=== PATIENT | female | born 1965 | race Caucasian/White ===

== ENCOUNTER 2017-08-04 11:04 | Emergency (ER) | payer OTHER ==
[~2017-08-04] VITALS: Ht 167.6 cm; Wt 55.0 kg
[2017-08-04 11:07] VITALS: BP 113/67; PULSE 107; RESP 16; TEMP 98.6; O2SAT 99
--- NOTE | 2017-08-04 11:12 | PD ---
Physical Exam Date Seen by Provider: Aug 04, 2017 Time Seen by Provider: 11:09 Data Data Last Documented VS Vital Signs Date Time Temp Pulse Resp B/P (MAP) Pulse Ox O2 Delivery O2 Flow Rate FiO2 08/04/17 11:07 98.6 107 16 113/67 (82) 99 MDM Supervised Visit with [facility]: No Narrative Course 52 YO F with complaint of "stomach bug" for 10 days. Endorses diarrhea and nausea. Denies vomiting. Seen at urgent care this week. Took an Imodium which caused pain, then took a laxative. Last treated 3 days ago. States that she has swollen ears and hives since last night. Vitals reviewed. Patient seen in triage, awaiting bed placement. Scripts No Active Prescriptions or Reported Meds Jennifer Crane Aug 04, 2017 11:12
[2017-08-04] MEDS ORDERED: PROM25TA10 PO (11:34)
[2017-08-04] MEDS ORDERED: MEDR4PAK PO (11:34)
--- NOTE | 2017-08-04 11:43 | PD ---
Physical Exam Date Seen by Provider: Aug 04, 2017 Narrative Patient presents with a pruritic rash. On exam, her ears are bright red. She has a diffuse, scattered, irregular macular rash. She is not having any respiratory difficulty. Data Data Last Documented VS Vital Signs Date Time Temp Pulse Resp B/P (MAP) Pulse Ox O2 Delivery O2 Flow Rate FiO2 08/04/17 11:07 98.6 107 16 113/67 (82) 99 MDM Supervised Visit with [facility]: Yes Narrative Course I, Dr. Hill, have reviewed the advance practice practitioner's documentation and am in agreement, met with the patient face to face, made the diagnosis, and the medical decision making was done by me. *My assessment and Findings: This patient appears to be having a mild allergic reaction. Scripts Methylprednisolone Dosepak (Medrol Dosepak) 4 Mg Dspk 4 MG PO DIRECTED, #1 DSPK 0 Refills Per Pharmacist direction Prov: Ailyn Mcfarland 08/04/17 Promethazine (Phenergan) 25 Mg Tablet 25 MG PO Q6H Y for NAUSEA OR VOMITING for 7 Days, #28 TAB 0 Refills Prov: Ailyn Mcfarland 08/04/17 Blanquita Hill MD Aug 04, 2017 11:43
--- NOTE | 2017-08-04 11:47 | PD ---
HPI Chief Complaint: Allergic/Adverse Reaction Time Seen by Provider: 11:14 Travel History International Travel<30 days: No Contact w/Intl Traveler<30days: No Traveled to known affect area: No History of Present Illness HPI 52-year-old white female here with and planing of itching and a rash. She says it started last night with bilateral ear itching and swelling. She developed hives on her arms and buttocks, then her eyebrows started becoming red and swollen. She she says she went to a walk-in clinic yesterday for a one- week history of a 'stomach bug' was given an abdominal x-ray and told to follow the BRAT diet. She thinks the the stomach bug they have contributed to her symptoms. Currently she has nausea but denies fever, chills, chest pain, shortness of breath, abdominal pain, hematochezia or melena. She denies any unusual or new foods, new medications, illicit drug use, or bites or stings. Medical history significant for hyperlipidemia and anxiety. PFSH Past Medical History Heart Rhythm Problems: No Cardiac Catheterization: Yes Cardiovascular Problems: Yes (PALPATIONS ) High Cholesterol: No Congestive Heart Failure: Yes Diabetes: No Diminished Hearing: No Immunizations Current: Yes Past Surgical History Section: Yes (X2) Coronary Artery Bypass Graft: No Social History Alcohol Use: Yes (occasional) Tobacco Use: No Substance Use: No Allergies-Medications (Allergen,Severity, Reaction): Coded Allergies: No Known Allergies (Verified , 10/28/15) Reported Meds & Prescriptions Reported Meds & Active Scripts Active Medrol Dosepak (Methylprednisolone) 4 Mg Dspk 4 Mg PO DIRECTED Per Pharmacist direction Phenergan (Promethazine HCl) 25 Mg Tablet 25 Mg PO Q6H PRN 7 Days Review of Systems Except as stated in HPI: all other systems reviewed are Neg Physical Exam Narrative GENERAL: 52-year-old white female Well-nourished, well-developed SKIN: Focused skin assessment warm/dry. Bilateral eyebrows demonstrate mild edema with accompanying erythema involving the eyebrows and 1cm superior to the eyebrows. In addition, buttocks and gluteal area demonstrated urticaria without confluence. Otherwise, skin is intact. HEAD: Normocephalic. EYES: No scleral icterus. No injection or drainage. NECK: Supple, trachea midline. No JVD or lymphadenopathy. CARDIOVASCULAR: Regular rate and rhythm without murmurs, gallops, or rubs. RESPIRATORY: Breath sounds equal bilaterally. No accessory muscle use. GASTROINTESTINAL: Abdomen soft, non-tender, nondistended. MUSCULOSKELETAL: No cyanosis, or edema. BACK: Nontender without obvious deformity. No CVA tenderness. Data Data Last Documented VS Vital Signs Date Time Temp Pulse Resp B/P (MAP) Pulse Ox O2 Delivery O2 Flow Rate FiO2 08/04/17 13:42 71 16 123/57 (79) 100 08/04/17 12:27 Room Air 08/04/17 11:07 98.6 MDM Medical Decision Making Medical Screen Exam Complete: Yes Emergency Medical Condition: Yes Differential Diagnosis Allergic dermatitis versus allergic reaction versus idiopathic urticaria Narrative Course 52-year-old white female here with and planing of itching and a rash. She says it started last night with bilateral ear itching and swelling. She developed hives on her arms and buttocks, then her eyebrows started becoming red and swollen. She she says she went to a walk-in clinic yesterday for a one- week history of a 'stomach bug' was given an abdominal x-ray and told to follow the BRAT diet. She thinks the the stomach bug they have contributed to her symptoms. Currently she has nausea but denies fever, chills, chest pain, shortness of breath, abdominal pain, hematochezia or melena. She denies any unusual or new foods, new medications, illicit drug use, or bites or stings. Medical history significant for hyperlipidemia and anxiety. Because of the onset of these symptoms and non-progression of symptoms, she was discharged with medications to reduce her pruritic urticaria and nausea. She was advised on the symptoms of a severe allergic reaction or anaphylaxis and understands to return if symptoms persist or worsen. When she asked about her diarrhea, I offered to order stool tests but she wanted to defer and see her primary physician. I recommend she follow up with her primary care physician Sunday for further evaluation and treatment. Diagnosis Primary Impression: Allergic reaction Qualified Codes: T78.40XA - Allergy, unspecified, initial encounter Referrals: Primary Care Physician Patient Instructions: Acute Rash (ED), General Instructions Additional Instructions: Follow up with your primary care doctor. Return to the emergency department if symptoms worsen or persist. Be aware that the medications you have been prescribed may cause drowsiness. If phenergan does not reduce the itching, you may stop phenergan and start over the counter benedryl as directed by package inserts.. Scripts Methylprednisolone Dosepak (Medrol Dosepak) 4 Mg Dspk 4 MG PO DIRECTED, #1 DSPK 0 Refills Per Pharmacist direction Prov: Ailyn Mcfarland 08/04/17 Promethazine (Phenergan) 25 Mg Tablet 25 MG PO Q6H Y for NAUSEA OR VOMITING for 7 Days, #28 TAB 0 Refills Prov: Ailyn Mcfarland 08/04/17 Disposition: 01 DISCHARGE HOME Condition: Stable Ailyn Mcfarland Aug 04, 2017 11:47
[2017-08-04 13:42] VITALS: BP 123/57
== END 2017-08-04 13:46 | disposition home or self-care (01) ==
LOC: NEPC 11:04
DX: T78.40XA Allergy, unspecified, initial encounter (principal); L29.9 Pruritus, unspecified; R21 Rash and other nonspecific skin eruption; R00.2 Palpitations; I50.9 Heart failure, unspecified; E78.5 Hyperlipidemia, unspecified; F41.9 Anxiety disorder, unspecified; Z79.899 Other long term (current) drug therapy
CPT/HCPCS: 99284